=== PATIENT | female | born 1930 | race Caucasian/White ===

== ENCOUNTER 2017-11-05 06:50 | Day surgery (SDC) | payer MEDICARE, OTHER ==
[~2017-11-05 06:50] MED LIST: ACTOS 15MG TABL15 MG PO; AVPAK AZITHROM250 MG PO; BYSTOLIC5 MG PO; CARAFATE1 GM PO; DYAZIDE CAP (M1 EACH PO; NEXIUM20 MG PO; PRAVASTATIN 40M40 MG PO; PROTONIX 40MG T40 MG PO; ULORIC40 MG PO
--- NOTE | 2017-11-05 08:03 | Operative Note ---
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 She has been on proton pump inhibition, as well as Carafate for almost 1 year and has undergone 3 separate esophagogastroduodenoscopies. Improvement in her ulceration has been noted on each evaluation and her most recent endoscopy earlier this year revealed severe inflammation, but no definitive ulceration. She remains on medical therapy and returns for reevaluation. Findings: No definitive ulceration, but severe inflammatory response still noted. Severe inflammation and prepyloric region with lobular changes were noted. Unchanged sliding hiatal hernia Procedure Description: After informed consent was obtained, the patient was taken to the endoscopy suite. IV sedation ensued after she was transferred to the LEFT lateral decubitus position. We gastroscope was advanced. The stomach was entered. Evaluation revealed severe lobular inflammation in the prepyloric region and multiple biopsies were obtained. True ulcerative changes were not noted, but no significant improvement with regard to inflammation was seen. Retroflexion revealed an unchanged sliding hiatal hernia. The gastroscope was carefully removed and the patient was transferred to recovery. EBL (ml): 1 Anesthesia: IV sedation with 4 mg of Versed and 100 g of fentanyl Complications: No immediate Specimens: Antrum/prepyloric biopsies of severe lobular inflammation Disposition Disposition: Stable to recovery from where she will be discharged home. She will follow-up in one week. She will continue PPI/Carafate and consideration will be given to reevaluation by gastroenterology for additional opinion regarding possible hyper secretory phase. She may require pH probe placement. at [id number]
[2017-11-05 15:13] VITALS: BP 121/67
== END 2017-11-05 08:34 | disposition home or self-care (01) ==
LOC: SDC 06:50
PROVIDERS: Surgery
PROC: 0DB78ZX Excision of Stomach, Pylorus, Via Natural or Artificial Opening Endoscopic, Diagnostic (ICD-10-PCS; principal; 2017-11-05 07:30)
DX: Z09 Encounter for follow-up examination after completed treatment for conditions other than malignant neoplasm (principal); Z87.11 Personal history of peptic ulcer disease; K29.70 Gastritis, unspecified, without bleeding; K44.9 Diaphragmatic hernia without obstruction or gangrene; E11.8 Type 2 diabetes mellitus with unspecified complications